=== PATIENT | male | born 1960 | race Caucasian/White ===

== ENCOUNTER 2016-09-22 10:09 | Emergency (ER) | payer OTHER ==
[2016-09-22] MEDS ORDERED: ZOVIRAX800 MG PO (11:29)
[2016-09-22] MEDS ORDERED: NORCO 5-325 TA1 EACH PO (11:29)
== END 2016-09-22 11:32 | disposition home or self-care (01) ==
LOC: ED 10:09
DX: B02.31 Zoster conjunctivitis (principal)

== ENCOUNTER → 2021-09-14 | Outpatient (CLI) | payer OTHER ==
[~2021-09-14] MED LIST: NORCO 5-325 TA1 EACH PO; ZOVIRAX800 MG PO
== END | disposition home or self-care (01) ==
LOC: RAD 09:47
PROVIDERS: ATTEND Internal Medicine Nephrology
DX: M18.12 Unilateral primary osteoarthritis of first carpometacarpal joint, left hand (principal); M79.89 Other specified soft tissue disorders

== ENCOUNTER → 2023-04-15 | Outpatient (CLI) | payer OTHER | END | disposition home or self-care (01) | LOC: RESCLI 01:12 | PROVIDERS: ATTEND Internal Medicine | DX: E11.9 Type 2 diabetes mellitus without complications (principal); I10 Essential (primary) hypertension; E03.9 Hypothyroidism, unspecified; E78.5 Hyperlipidemia, unspecified; Z79.899 Other long term (current) drug therapy; Z96.652 Presence of left artificial knee joint; Z96.651 Presence of right artificial knee joint; Z98.890 Other specified postprocedural states; E55.9 Vitamin D deficiency, unspecified; C44.90 Unspecified malignant neoplasm of skin, unspecified ==

== ENCOUNTER 2024-09-26 15:22 | Emergency (ER) | payer OTHER ==
[~2024-09-26] VITALS: Ht 182.8 cm; Wt 115.7 kg
[2024-09-26] MEDS ORDERED: CEPHALEXIN 500 MG CAP PO ONE (15:50)
[2024-09-26] MEDS ORDERED: Ketorolac Tromethamine 60 MG/2 ML VIAL IM ONE (15:50)
[2024-09-26] MEDS ORDERED: Tdap Vaccine 0.5 ML SYR (Adult Vaccine) IM ONE (15:50)
[2024-09-26] MEDS ORDERED: Acetaminophen/Hydrocodone 5 MG/325 MG TABLET PO ONE (16:40)
[2024-09-26] MEDS ORDERED: Bacitracin Zinc 14 GM TUBE T ONE (16:45)
[2024-09-26] MEDS ORDERED: CEPHALEXIN500 M1 PO (16:49)
== END 2024-09-26 17:28 | disposition home or self-care (01) ==
LOC: ED 15:22
DX: S91.212A Laceration without foreign body of left great toe with damage to nail, initial encounter (principal); M25.561 Pain in right knee; M25.562 Pain in left knee; I10 Essential (primary) hypertension; E11.9 Type 2 diabetes mellitus without complications; Z79.899 Other long term (current) drug therapy; Z96.653 Presence of artificial knee joint, bilateral; W10.8XXA Fall (on) (from) other stairs and steps, initial encounter; Y93.89 Activity, other specified; Y92.89 Other specified places as the place of occurrence of the external cause; Y99.8 Other external cause status